=== PATIENT | male | born 2000 | race Hispanic/Latino ===

== ENCOUNTER 2023-06-03 14:05 | Emergency (ER) | payer OTHER ==
[~2023-06-03] VITALS: Ht 182.9 cm; Wt 101.4 kg
[2023-06-03 14:44] VITALS: O2SAT 99
== END 2023-06-03 15:05 | disposition home or self-care (01) ==
LOC: EDBD 14:05 → FSED 14:10
DX: S60.470A Other superficial bite of right index finger, initial encounter (principal); W53.21XA Bitten by squirrel, initial encounter; Y92.89 Other specified places as the place of occurrence of the external cause
CPT/HCPCS: 99282